=== PATIENT | female | born 1985 | race Caucasian/White ===

== ENCOUNTER 2022-09-27 08:02 | Emergency (ER) | payer BC ==
[~2022-09-27] VITALS: Ht 157.5 cm; Wt 57.6 kg
--- NOTE | 2022-09-27 08:19 | NUR ---
DR GARZA AT BEDSIDE
--- NOTE | 2022-09-27 09:05 | NUR ---
Patient discharged to home in stable condition. Written and verbal after care instructions given. Patient verbalizes understanding of instruction.
[2022-09-27 09:06] VITALS: BP 128/93
== END 2022-09-27 09:13 | disposition home or self-care (01) ==
LOC: ER 08:29
DX: O26.899 Other specified pregnancy related conditions, unspecified trimester (principal); M54.9 Dorsalgia, unspecified; Z3A.00 Weeks of gestation of pregnancy not specified